=== PATIENT | female | born 1960 | race African-American/Black ===

== ENCOUNTER 2018-08-24 17:23 | Emergency (ER) | payer OTHER ==
[~2018-08-24] VITALS: Ht 162.6 cm; Wt 59.0 kg
[~2018-08-24 17:23] MED LIST: NKM
--- NOTE | 2018-08-24 17:30 | NUR ---
ED Nurse Note: pt walked in c/o anxiety attack, pt states she's never had one like this before and couldn't move her body. pt AA&ox4, gcs=15, skin warm and dry, resp even and unlabored on RA, -n/v/d, ambulates w/ steady gait, will cont monitor.
--- NOTE | 2018-08-24 17:30 | NUR ---
ED Nurse Note: correction: pt brought in by [id number].
[2018-08-24] MEDS ORDERED: LORazepam 1mg tab ORAL ONE (17:45)
[2018-08-24] MEDS ORDERED: ATIVAN0.5 MG ORAL (17:53)
--- NOTE | 2018-08-24 17:54 | Emergency Room Report ---
History of Present Illness General Chief Complaint: Palpitations Source: Patient Present Illness HPI 57-year-old female presents with acute anxiety that began 3 hours ago. Patient states that [place] and when she was needing going on the bus she started having an anxiety attack. Her associated symptoms included muscle spasms and contractions with feeling anxious. States she has a history of these anxiety attacks in the past and usually occurs every 3 months. States that she feels better after trying to relax but still feels some paresthesias associated with spasms in her hands lower extremities bilaterally. She denies any chest pain or shortness of breath or any signs of dehydration. Denies any current n/v/f/c/d, abd pain, back pain, neck pain, photophobia, phonophobia, CP, SOB or headache. Allergies: Coded Allergies: No Known Allergies (Unverified , 08/24/18) Patient History Past Medical History: see triage record Pertinent Family History: none Reviewed Nursing Documentation: PMH: Agreed; PSxH: Agreed Nursing Documentation-PMH Past Medical History: No History, Except For History Of Psychiatric Problem: Yes - ANXIETY Review of Systems All Other Systems: negative except mentioned in HPI Physical Exam Vital Signs Date Time Temp Pulse Resp B/P (MAP) Pulse Ox O2 Delivery O2 Flow Rate FiO2 08/24/18 17:16 97.9 86 16 132/72 98 Room Air Sp02 EP Interpretation: reviewed, normal General Appearance: no apparent distress, alert, GCS 15, non-toxic Head: normocephalic, atraumatic Eyes: bilateral eye normal inspection, bilateral eye PERRL ENT: hearing grossly normal, normal pharynx, no angioedema, normal voice Neck: full range of motion, supple/symm/no masses Respiratory: chest non-tender, lungs clear, normal breath sounds, speaking full sentences Cardiovascular #1: regular rate, rhythm, no edema Musculoskeletal: back normal, gait/station normal, normal range of motion, non- tender, other - Mild carpal pedal spasms present Neurologic: alert, oriented x3, responsive, inspector tool III-XII nml as tested, motor strength/tone normal - 5/5 and equal bilaterally, sensory intact, normal gait, speech normal, no pronator, other Psychiatric: judgement/insight normal, memory normal, no suicidal/homicidal ideation, anxious Skin: normal color, no rash, warm/dry, well hydrated Medical Decision Making PA Attestation Dr. Hudson is my supervising physician with whom patient management has been discussed with. Diagnostic Impression: Primary Impression: Anxiety attack ER Course 57-year-old female presents with carpal pedal spasm associate with anxiety. States that she has had this in the past and that also impeding typically helps her symptoms. She states that her carpal pedal spasms have markedly improved but she still has some anxiety is looking for medication for her symptoms. On exam she has benign findings without any significant neurological deficits. She denies any chest pain or shortness of breath or any cardiac or stroke symptoms. The patient was given 1 mg of Ativan. Her vital signs appear stable she is afebrile. At this time the patient appears stable for discharge home without any emergent exam findings. Will provide printed patient care instructions, and any necessary prescriptions. Care plan and follow up instructions have been discussed with the patient prior to discharge. Last Vital Signs Date Time Temp Pulse Resp B/P (MAP) Pulse Ox O2 Delivery O2 Flow Rate FiO2 08/24/18 17:16 97.9 86 16 132/72 98 Room Air Disposition: HOME, SELF-CARE Condition: Stable Scripts Lorazepam* (ATIVAN*) 0.5 Mg Tablet 0.5 MG ORAL DAILY for 5 Days, #5 TAB Prov: Tara Burnham 08/24/18 Patient Instructions: Panic Attacks Additional Instructions: Take medication as directed. Patient is to follow-up with her primary care provider within the next 2-3 days for recheck of her symptoms. Please come back to the ER immediately should you have any numbness, weakness, altered level consciousness, headache, fever, worsening symptoms, chest pain, or shortness of breath. Tara Burnham Aug 24, 2018 17:54
[2018-08-24 17:55] VITALS: BP 132/72
[2018-08-24 18:20] VITALS: BP 129/67
--- NOTE | 2018-08-24 18:20 | NUR ---
ED Nurse Note: pt cleared to be d/c per ERMD, pt discharge and aftercare instruction provided w/ prescription, pt education done via discussion and hand out, pt advised to follow up with pcp or return to ed if sx worsen or new sx develop, pt verbalized understanding and agrees with plan, vss, ambulatory w/ steady gait, left w/ all belongings.
== END 2018-08-24 18:20 | disposition home or self-care (01) ==
LOC: EDBD 17:23 → EMR 17:37
DX: F41.9 Anxiety disorder, unspecified (principal); M62.838 Other muscle spasm
CPT/HCPCS: 99282